=== PATIENT | female | born 1950 | race Hispanic/Latino ===

== ENCOUNTER → 2021-04-07 | Outpatient (CLI) | payer OTHER, MEDICARE | END | disposition home or self-care (01) | LOC: SHCH 14:17 | PROVIDERS: ATTEND Internal Medicine Cardiovascular Disease | DX: R01.1 Cardiac murmur, unspecified (principal) | CPT/HCPCS: 93306; 93356 ==

== ENCOUNTER → 2021-08-31 | Outpatient (CLI) | payer OTHER, MEDICARE | END | disposition home or self-care (01) | LOC: RAH 14:59 | PROVIDERS: ATTEND Anesthesiology | DX: M47.816 Spondylosis without myelopathy or radiculopathy, lumbar region (principal); M48.061 Spinal stenosis, lumbar region without neurogenic claudication | CPT/HCPCS: 72148 ==

== ENCOUNTER → 2023-05-25 | Outpatient (CLI) | payer OTHER, MEDICARE ==
[2023-05-25 12:42] LABS: BILIRUBIN,TOTAL 0.5 mg/dL (0.2-1.0); CREATININE 0.8 mg/dL (0.5-1.5); POTASSIUM 3.7 mmol/L (3.5-5.1); THYROID STIMULATING HORMONE 1.2 uIU/mL (0.36-3.74); TOTAL PROTEIN, SERUM 7.8 g/dL (6.0-8.3)
[2023-05-25 13:14] LABS: HEMOGLOBIN A1C 6.3 % (4.0-6.0)
== END | disposition home or self-care (01) ==
LOC: LAB 08:07
PROVIDERS: ATTEND Internal Medicine Cardiovascular Disease
DX: I10 Essential (primary) hypertension (principal); E78.5 Hyperlipidemia, unspecified; I65.23 Occlusion and stenosis of bilateral carotid arteries; I87.2 Venous insufficiency (chronic) (peripheral); I73.9 Peripheral vascular disease, unspecified; Z79.899 Other long term (current) drug therapy
CPT/HCPCS: 36415; 80053; 80061; 83036; 84443

== ENCOUNTER → 2023-07-12 | Outpatient (CLI) | payer OTHER, MEDICARE | END | disposition home or self-care (01) | LOC: SHCH 07:43 | PROVIDERS: ATTEND Internal Medicine Cardiovascular Disease | DX: I87.2 Venous insufficiency (chronic) (peripheral) (principal); I82.512 Chronic embolism and thrombosis of left femoral vein; I87.1 Compression of vein; I65.23 Occlusion and stenosis of bilateral carotid arteries; I77.9 Disorder of arteries and arterioles, unspecified | CPT/HCPCS: 93880; 93970 ==

== ENCOUNTER → 2024-01-30 | Outpatient (CLI) | payer OTHER, MEDICARE | END | disposition home or self-care (01) | LOC: RAH 12:40 | PROVIDERS: ATTEND Family Medicine | DX: G31.9 Degenerative disease of nervous system, unspecified (principal); R51.9 Headache, unspecified | CPT/HCPCS: 70551 ==

== ENCOUNTER → 2024-12-24 | Outpatient (CLI) | payer OTHER, MEDICARE ==
--- NOTE | 2024-12-24 14:25 | HMCSR ---
APPROVED REPORT Laterality: Bilateral Indications Claudication: , PAD VELOCITY AND DOPPLER WAVEFORM ANALYSIS SAMPLE MAKER (R) 174.7cm/sec, Monophasic, SAMPLE MAKER (L) 160.4cm/sec, Biphasic, Prof Fem Art. (R) 88.3cm/sec, Monophasic, Prof Fem Art. (L) 109.0cm/sec, Biphasic, Fem Art Prox. (R) 138.7cm/sec, Monophasic, Fem Art Prox. (L) 117.3cm/sec, Biphasic, Fem Art Mid. (R) 122.9cm/sec, Monophasic, Fem Art Mid. (L) 125.6cm/sec, Biphasic, Fem Art Dist (R) 83.4cm/sec, Monophasic, Fem Art Dist. (L) 71.8cm/sec, Biphasic, Pop Art(AK) (R) 86.1cm/sec, Monophasic, Pop Art (AK) (L) 108.8cm/sec, Biphasic, Pop Art (Fossa)(R) 75.4cm/sec, Monophasic, Pop Art (Fossa) (L) 93.8cm/sec, Biphasic, Pop Art(BK) (R) 95.1cm/sec, Monophasic, Pop Art (BK) (L) 79.9cm/sec, Biphasic, SPONSORSHIP MANAGER Prox. (R) 44.9cm/sec, Monophasic, SPONSORSHIP MANAGER Prox. (L) 90.3cm/sec, Biphasic, SPONSORSHIP MANAGER Mid. (R) 32.0cm/sec, Monophasic, SPONSORSHIP MANAGER Mid. (L) 92.6cm/sec, Biphasic, SPONSORSHIP MANAGER Dist. (R) 119.1cm/sec, Biphasic, Recollalteralized SPONSORSHIP MANAGER Dist. (L) 98.4cm/sec, Biphasic, Per Art Prox. (R) 63.7cm/sec, Monophasic, Per Art Prox. (L) 57.9cm/sec, Biphasic, Per Art Mid. (R) 20.7cm/sec, Monophasic, Per Art Mid. (L) 57.9cm/sec, Biphasic, Per Art Dist. (R) 138.7cm/sec, Monophasic, Per Art Dist. (L) 37.7cm/sec, Monophasic, FLORENCIO Prox. (R) 75.4cm/sec, Biphasic, FLORENCIO Prox. (L) 97.8cm/sec, Biphasic, FLORENCIO Mid. (R) 30.5cm/sec, Monophasic FLORENCIO Mid. (L) 80.8cm/sec, Biphasic, FLORENCIO Dist. (R) cm/sec, Pre-Occluded FLORENCIO Dist. (L) 104.9cm/sec, Biphasic, Technologist Impression Suggestive of infra-popliteal disease bilaterally, Right more than Left. Recollateralized flow in the Right distal SPONSORSHIP MANAGER with multiphasic waveforms. Pre-occlusive waveforms in the Right distal FLORENCIO. Conclusion Significant right lower extremity infrapopliteal PID Clinical correlation recommended Consider formal angiography if clinically indicated Conclusion Significant right lower extremity infrapopliteal PID Clinical correlation recommended Consider formal angiography if clinically indicated
--- NOTE | 2024-12-24 14:26 | HMCSR ---
APPROVED REPORT Bilateral Lower Extremity Venous Study for Venous Competence. Indications Lower Extremity Pain: , i87.1,i87.2 Vein Imaging CFV (R): Normal flow, augmentation and compression. No evidence of DVT. 11.5mm 0.0ms of reflux. SFJ (R): Normal flow, augmentation and compression. No evidence of DVT. FEM (R): Normal flow, augmentation and compression. No evidence of DVT. POP (R): Normal flow, augmentation and compression. No evidence of DVT. DFV (R): Normal flow, augmentation and compression. No evidence of DVT. PTV (R): Normal flow, augmentation and compression. No evidence of DVT. Peroneals (R): Normal flow, augmentation and compression. No evidence of DVT. CFV (L): Normal flow, augmentation and compression. No evidence of DVT. 12.mm 3100ms of reflux. SFJ (L): Normal flow, augmentation and compression. No evidence of DVT. FEM (L): Partially Compressible, Recanalized flow, Normal Augmentation. Evidence of chronic DVT. Prox imal 1283ms, Mid 3533ms of reflux POP (L): Partially Compressible, Recanalized flow, Normal Augmentation. Evidence of chronic DVT. 2992 ms of reflux. DFV (L): Normal flow, augmentation and compression. No evidence of DVT. PTV (L): Normal flow, augmentation and compression. No evidence of DVT. Peroneals (L): Normal flow, augmentation and compression. No evidence of DVT. Technologist Impression Left SFV and Popliteal veins appear partially compressible with recanalized flow and normal augmentat ion. Evidence of chronic DVT. Deep venous reflux noted in the LCFV, LSFV and LPopliteal veins. Superficial venous insufficiency in the RGSV, RSSV LGSV, and LSSV. RGSV junction 7.7mm 522ms thigh 4.1mm 2044ms knee 3.7mm 2361ms calf 2.5mm 850ms RSSV prox 1.6mm 1728ms mid 2.0mm 406ms LGSV junction 6.4mm 2267ms thigh 4.2mm 0.0ms knee 4.0mm 950ms calf 2.8mm 0.0ms LSSV prox 2.4mm 508ms mid 2.6mm 0.0ms Conclusion Evidence of chronic DVT with recanalization noted of left lower extremity Deep venous reflux noted in the LCFV, LSFV and LPopliteal veins. Superficial venous insufficiency in the RGSV, RSSV LGSV, and LSSV. Clinical correlation recommended Consider formal venography with intravascular ultrasound if iliac vein compression is suspected Conclusion Evidence of chronic DVT with recanalization noted of left lower extremity Deep venous reflux noted in the LCFV, LSFV and LPopliteal veins. Superficial venous insufficiency in the RGSV, RSSV LGSV, and LSSV. Clinical correlation recommended Consider formal venography with intravascular ultrasound if iliac vein compression is suspected
== END | disposition home or self-care (01) ==
LOC: SHCH 12:45
PROVIDERS: ATTEND Internal Medicine Cardiovascular Disease
DX: I08.3 Combined rheumatic disorders of mitral, aortic and tricuspid valves (principal); I82.502 Chronic embolism and thrombosis of unspecified deep veins of left lower extremity; I77.89 Other specified disorders of arteries and arterioles; I25.42 Coronary artery dissection; I73.9 Peripheral vascular disease, unspecified; I87.2 Venous insufficiency (chronic) (peripheral); I87.1 Compression of vein
CPT/HCPCS: 93306; 93925; 93970